=== PATIENT | male | born 1950 | race Caucasian/White ===

== ENCOUNTER 2017-03-17 08:46 | Day surgery (SDC) | payer MEDICARE, OTHER ==
[~2017-03-17] VITALS: Ht 195.6 cm; Wt 104.3 kg
--- NOTE | ~2017-03-17 | EGD ---
EGD REPORT [facility] [address] [place] [address] NAME: GEMMA JOHNSON : [birth year] STATUS : REG [facility] PAT#: [id number] AGE: 66 ADM/REG DATE : 03/17/17 MR#: [id number] REPORT SERV DATE: 03/17/17 DICTATED BY: RADHA CHRISTOPHER DATE: 03/17/17 REPORT STATUS : Draft TRANSCRIBED BY: [employer] DATE: 03/17/17 [facility] Patient Name: Gemma Johnson Date of : 1950 Attending MD: RADHA CHRISTOPHER, Procedure Date No Time: 03/17/2017 Procedure: Upper EUS Indications: Acute pancreatitis Referring MD: DEION CONNOLLY MD Medicines: Monitored Anesthesia Care Complications: No immediate complications. Estimated blood loss: None. Procedure: After obtaining informed consent, the endoscope was passed under direct vision. Throughout the procedure, the patient's blood pressure, pulse, and oxygen saturations were monitored continuously. The GIF [id number] was introduced through the mouth, and advanced to the second part of duodenum. The Endoscope was introduced through the mouth, and advanced to the second part of duodenum. Findings: Endoscopic Finding : The examined esophagus was endoscopically normal. The cardia and gastric fundus were normal on retroflexion. The examined duodenum was endoscopically normal. Patchy mild inflammation characterized by erythema was found in the gastric antrum. Biopsies were taken with a cold forceps for histology. Verification of patient identification for the specimen was done. Estimated blood loss was minimal. The exam of the stomach was otherwise normal. Endosonographic Finding : There was no sign of significant endosonographic abnormality in the entire pancreas. The pancreas was well visualized, no masses, no calcifications, the pancreatic duct was well visualized from ampulla to tail, the pancreatic duct was regular in contour. There was no sign of significant endosonographic abnormality in the common bile duct. No lymphadenopathy seen. There was no sign of significant endosonographic abnormality in the gallbladder body. Impression: - Normal esophagus. - Normal examined duodenum. - Gastritis. Biopsied. - There was no sign of significant pathology in the EGD REPORT [address] [id number] NAME: GEMMA JOHNSON : [birth year] STATUS : REG [facility] PAT#: [id number] AGE: 66 ADM/REG DATE : 03/17/17 MR#: [id number] REPORT SERV DATE: 03/17/17 DICTATED BY: RADHA CHRISTOPHER DATE: 03/17/17 REPORT STATUS : Draft TRANSCRIBED BY: [employer] DATE: 03/17/17 entire pancreas. - There was no sign of significant pathology in the common bile duct. - There was no sign of significant pathology in the gallbladder body. Recommendation: - Return to previous diet. - Await path results. - Return to referring physician. Procedure Code(s): --- Professional --- 46406, Esophagogastroduodenoscopy, flexible, transoral; with endoscopic ultrasound examination, including the esophagus, stomach, and either the duodenum or a surgically altered stomach where the jejunum is examined distal to the anastomosis 11326, 59, Esophagogastroduodenoscopy, flexible, transoral; with biopsy, single or multiple Diagnosis Code(s): --- Professional --- K29.70, Gastritis, unspecified, without bleeding K85.9, Acute pancreatitis, unspecified CPT copyright 2013 [employer]. All rights reserved. The codes documented in this report are preliminary and upon power tool repairer review may be revised to meet current compliance requirements. RADHA CHRISTOPHER, 03/17/2017 11:26 AM Number of Addenda: 0 Note Initiated On: 03/17/2017 10:33 AM Scope Withdrawal Time 0 hours 0 minutes 0 seconds [address] [place] [address]
[~2017-03-17 08:46] MED LIST: AUG875 PO; CENTRUM TAB1 TAB PO; HALF81 PO; I20 PO; LIPITOR40 PO; PRILOSEC40 MG PO; ZYRTEC ALLGY10 MG PO
== END 2017-03-17 23:59 | disposition home or self-care (01) ==
LOC: DMU 08:46
PROVIDERS: Internal Medicine Gastroenterology
PROC: 0DJ08ZZ Inspection of Upper Intestinal Tract, Via Natural or Artificial Opening Endoscopic (ICD-10-PCS; 2017-03-17)
PROC: 0DB78ZX Excision of Stomach, Pylorus, Via Natural or Artificial Opening Endoscopic, Diagnostic (ICD-10-PCS; principal; 2017-03-17 09:30)
DX: K29.50 Unspecified chronic gastritis without bleeding (principal); K85.90 Acute pancreatitis without necrosis or infection, unspecified; I10 Essential (primary) hypertension; I25.10 Atherosclerotic heart disease of native coronary artery without angina pectoris; I25.2 Old myocardial infarction; Z95.1 Presence of aortocoronary bypass graft; Z87.891 Personal history of nicotine dependence; Z98.890 Other specified postprocedural states; Z79.899 Other long term (current) drug therapy
CPT/HCPCS: 88305; C1725